=== PATIENT | male | born 1970 | race Caucasian/White ===

== ENCOUNTER 2017-03-27 14:58 | Emergency (ER) | payer BC ==
[~2017-03-27 14:58] MED LIST: MUCINEX DM1 TAB.SR . PO; NAPROSYN250 M1; SUDAFED PO
[2017-03-27] MEDS ORDERED: [UNRECOGNIZED DRUG - REMARK] (15:01)
== END 2017-03-27 16:06 | disposition home or self-care (01) ==
LOC: SED 14:58
DX: J06.9 Acute upper respiratory infection, unspecified (principal); J45.909 Unspecified asthma, uncomplicated; F17.210 Nicotine dependence, cigarettes, uncomplicated; Z88.0 Allergy status to penicillin
CPT/HCPCS: 87651; 99283